=== PATIENT | female | born 1955 | race Caucasian/White ===

== ENCOUNTER 2020-09-05 18:15 | Emergency (ER) | payer MEDICARE ==
[~2020-09-05] VITALS: Ht 152.4 cm; Wt 68.9 kg
== END 2020-09-05 22:13 | disposition home or self-care (01) ==
LOC: ED 18:15
DX: S63.502A Unspecified sprain of left wrist, initial encounter (principal); X58.XXXA Exposure to other specified factors, initial encounter; Y93.89 Activity, other specified; Y92.89 Other specified places as the place of occurrence of the external cause; Y99.8 Other external cause status